=== PATIENT | female | born 1945 | race Caucasian/White ===

== ENCOUNTER 2016-05-05 13:59 | Inpatient (IN) | payer MEDICARE, BC, OTHER ==
[~2016-05-05] VITALS: Ht 167.6 cm; Wt 117.2 kg
[2016-05-06] MEDS ORDERED: ATOR1TAB18 PO (08:32)
[2016-05-06] MEDS ORDERED: MULT1TAB84 PO (08:32)
[2016-05-06] MEDS ORDERED: SYSTSOL9 EACH EYE (08:32)
[2016-05-06] MEDS ORDERED: ZETI10TA5 PO (08:32)
[2016-05-06] MEDS ORDERED: ASPI-147 PO (08:32)
[2016-05-06] MEDS ORDERED: METO100T9 PO (08:32)
[2016-05-06] MEDS ORDERED: LATA0.002 EACH EYE (08:32)
[2016-05-06] MEDS ORDERED: FOLI1TAB4 PO (08:32)
[2016-05-06] MEDS ORDERED: CLOP75TA PO (08:32)
[2016-05-17] VITALS (7 sets, daily range): BP systolic 116–136; BP diastolic 58–72; PULSE 74–90; RESP 16–20; TEMP 96–98; O2SAT 94–98
[2016-05-17] MEDS ORDERED: VANCOMYCIN HCL 1000 MG VIAL ONE (07:35)
[2016-05-17] MEDS ORDERED: SODIUM CHLOR 0.9% 250 ML INJ 250 ML ONE (07:35)
[2016-05-17] MEDS ORDERED: POVIDONE IODINE 7.5% SCRUB 118 ML BOTTLE TOP SCH (07:45)
[2016-05-17] MEDS ORDERED: VANCOMYCIN 1000 MG/NS 250 ML (for <70 kg) IV SCH ×2 (07:45)
[2016-05-17] MEDS ORDERED: INSULIN HUMAN REGULAR 1,000 UNITS/10 ML VIAL SQ PRN (07:45)
[2016-05-17] MEDS ORDERED: METOPROLOL TARTRATE 25 MG TAB PO PRN (07:45)
[2016-05-17] MEDS ORDERED: SODIUM CHLORID 0.9% 500 ML IV SCH (07:45)
[2016-05-17] MEDS ORDERED: BUPIVACAINE LIPOSO PF 1.3% INJ 20 ML in SODIUM CHLORIDE 0.9% INJ 40 ML P-ARTICULR SCH (08:00)
[2016-05-17] MEDS ORDERED: SODIUM CHLORIDE 0.9% IV SCH (08:00)
[2016-05-17] MEDS ORDERED: TRANEXAMIC ACID IV SCH (08:00)
[2016-05-17] MEDS ORDERED: EXPAREL PERI-ARTICULAR INJECTION (TOTAL VOL. 60 ML) P-ARTICULR SCH ×2 (08:00)
--- NOTE | 2016-05-17 08:12 | MH ---
cc: KEYONA KINGSLEY DATE OF ADMISSION: 05/17/2016 ADMISSION DIAGNOSIS Osteoarthritis left knee. HISTORY This is a 70-year-old female with significant left knee pain. Investigative studies show evidence of extensive arthritis left knee. Despite conservative care including injections, medications, altered activities, etc., the patient continued to be painful and presents now for surgical treatment. PAST MEDICAL HISTORY, SOCIAL HISTORY, FAMILY HISTORY, REVIEW OF SYSTEMS See attached notes. PHYSICAL EXAMINATION General: A 70-year-old female in moderate distress with her left knee. HEENT: Normocephalic, atraumatic. Pupils equal, round, reactive to light and accommodation. Extraocular motions intact. Neck: Supple. Chest: Clear. Heart: Regular rate and rhythm. Abdomen: Soft, nontender with normoactive bowel sounds. Musculoskeletal: Examination shows left knee pain with range of motion especially with flexion and extension. Neurovascular and vascular examination is within normal limits. IMPRESSION Osteoarthritis left knee. PLAN Left total knee replacement arthroplasty. CONSENT There are risks with surgery including infection, bleeding, loss of motion, continued pain, need for further surgery, neurologic or vascular injury. The patient understands this and requests to proceed with the surgery as outlined above. MD ANGELINA Haney/CARLOS /10:53 PM /8:06 AM
[2016-05-17] MEDS ORDERED: ONDANSETRON HCL 4 MG/2 ML VIAL IV PUSH ONE (08:15)
[2016-05-17] MEDS ORDERED: NEOSTIGMINE 3 MG/3 ML SYR IV ONE (08:15)
[2016-05-17] MEDS ORDERED: LACTATED RINGER'S 1000 ML INJ 2,000 ML IV ONE (08:15)
[2016-05-17] MEDS ORDERED: PROPOFOL 200 MG/20 ML AMP IV ONE (08:15)
[2016-05-17] MEDS ORDERED: ceFAZolin 2 GM PREMIX 50 ML IV SCH (08:15)
[2016-05-17] MEDS ORDERED: PHENYLEPH/NS 1000 MCG/10 ML SYR IV ONE (08:15)
[2016-05-17] MEDS ORDERED: ePHEDrine/NS 25 MG/5 ML SYR IV ONE (08:15)
[2016-05-17] MEDS ORDERED: fentaNYL CITRATE 1000 MCG/20 ML VIAL ONE (08:22)
[2016-05-17] MEDS ORDERED: FAMOTIDINE 20 MG/2 ML VIAL ONE (08:22)
[2016-05-17] MEDS ORDERED: MIDAZOLAM HCL 2 MG/2 ML VIAL ONE (08:22)
[2016-05-17] MEDS ORDERED: MIDAZOLAM HCL 2 MG/2 ML VIAL IV PUSH ONE (08:26)
[2016-05-17] MEDS ORDERED: FAMOTIDINE 20 MG/2 ML VIAL IV PUSH ONE (08:30)
[2016-05-17] MEDS ORDERED: ACETAMINOPHEN 1000 MG/100 ML VIAL IV ONE (08:37)
[2016-05-17] MEDS ORDERED: GENTAMICIN SULFATE 80 MG/2 ML VIAL XX ONE (09:53)
--- NOTE | 2016-05-17 11:25 | PD.OP ---
cc: Mehdi Gamboa MD Operative Report Date of Surgery: May 17, 2016 Preoperative Diagnosis: Osteoarthritis left knee. Valgus deformity left knee Postoperative Diagnosis: Same Procedure: Left total knee replacement arthroplasty, cruciate retaining Anesthesia: Gen. Surgeon: Mehdi Gamboa Cell Plasterer(s): ELOINA Carbajal Operation and Findings: EBL: 100 cc INDICATION: This patient presents with long-standing arthritis of the knee. This patient also has a valgus deformity of the knee. Attachment record documents conservative measures. The patient now presents for surgical treatment. NOTE: Yessenia Carbajal PA-C was present for the entire surgical procedure as my assistant director of admissions. In my medical opinion her skill and care was necessary for proper management of this patient. TOURNIQUET TIME: 51 minutes COMPANY: [employer] FEMUR: Size 3, cruciate retaining TIBIA: Size 3, fixed bearing PATELLA: 35mm mm POLYETHYLENE INSERT: 9 mm PROCEDURE: This patient was brought the operating room and anesthetized in the supine position. The patient was positioned supine on the table. The tourniquet was placed about the thigh, and the leg was scrubbed with alcohol followed by Hibiclens followed by ChloraPrep and draped sterilely. A timeout was done, and antibiotics were given. After exsanguination the tourniquet was inflated to 250 mmHg. An anterior incision was made and a median parapatellar arthrotomy was performed. The patella was released laterally and subluxed allowing freehand cut of the patella which was then sized. A metal cap was placed over the exposed patellar surface for protection. A photogrammetry airplane pilot hole was placed in the distal femur allowing a 4 valgus cut removing and mm from the distal femur. Anterior posterior and chamfer cuts were made. The attention was directed to the tibia. Retractors were positioned. The external alignment guide was used allowing the lateral tibia to be used as referencing guide and cut utilizing an oscillating saw taking care to avoid any injury to the surrounding soft tissues. This was sized properly. Trial reduction showed that the insert fit nicely. The patient had range of motion extension 0 flexion and 115. A medial release was not necessary. The bony surfaces prepared. On the back table 2 packets of methylmethacrylate were mixed. The components were cemented. Excess cement was removed. The tourniquet let down and hemostasis was controlled. The final plastic insert was inserted. Range of motion was the same as previously noted. A drain was brought through a separate stab incision. The arthrotomy was repaired with interrupted #1 Vicryl suture, subcutaneous tissue 2-0 Vicryl suture and skin with metallic romelia A sterile dressing was applied. Sponge counts, needle counts and instrument counts were all correct. The patient tolerated procedure well and was taken to recovery in satisfactory condition. FINDINGS: There was evidence of a moderate to severe valgus deformity. We ended up removing less from the lateral side than the medial side of the femur. The overall final fit and stability was excellent. No complication was noted. Mehdi Gamboa MD May 17, 2016 11:25
[2016-05-17] MEDS ORDERED: XARE10TA PO (11:26)
[2016-05-17] MEDS ORDERED: HYDR-3580 PO (11:26)
[2016-05-17] MEDS ORDERED: MORPHINE SULFATE 8 MG/ML INJ IV PUSH PRN (11:30)
[2016-05-17] MEDS ORDERED: Post-op Orders (for Pharmacy) MISC XX ONE (11:30)
[2016-05-17] MEDS ORDERED: ONDANSETRON HCL 4 MG/2 ML VIAL IVP PRN (11:30)
[2016-05-17] MEDS ORDERED: NALOXONE HCL 0.4 MG/ML AMP IV PRN (11:30)
[2016-05-17] MEDS ORDERED: BISACODYL 10 MG SUPP PR PRN (11:30)
[2016-05-17] MEDS ORDERED: MISCELLANEOUS NURSING INFORMATION XX PRN (11:30)
[2016-05-17] MEDS ORDERED: DO NOT ADM ANY ANTICOAGULANT DRUGS XX PRN (11:30)
[2016-05-17] MEDS ORDERED: SODIUM CHLORIDE 0.9% FLUSH 5 ML FLUSH IVF PRN (11:30)
[2016-05-17] MEDS ORDERED: ACETAMINOPHEN/HYDROcodone 325 MG/7.5 MG TAB PO PRN (11:30)
[2016-05-17] MEDS ORDERED: ALUMINUM/MAGNESIUM/SIMETH 30 ML CUP PO PRN (11:30)
[2016-05-17] MEDS ORDERED: MORPHINE SULFATE 30 MG/30 ML PCA ONE (11:38)
[2016-05-17] MEDS ORDERED: fentaNYL CITRATE 250 MCG/5 ML AMP ONE (11:42)
[2016-05-17] MEDS: MORPHINE SULFATE 30 MG/30 ML PCA IV SCH ×2 (11:45→21:06)
[2016-05-17] MEDS: LACTATED RINGER'S 1000 ML INJ 1,000 ML IV SCH ×2 (11:45→23:51)
[2016-05-17] MEDS ORDERED: ROPIVACAINE 0.5% PF INJ 30 ML VIAL NB ONE (11:55)
--- NOTE | 2016-05-17 12:49 | RADRPT ---
EXAM DATE/TIME: 05/17/2016 12:00 [facility] COMPARISON: No previous studies available for comparison. INDICATIONS : Post op left knee. MEDICAL HISTORY : None. SURGICAL HISTORY : None. ENCOUNTER: Initial ACUITY: 1 day PAIN SCORE: 4/10 LOCATION: Left knee FINDINGS: Patient is status post placement of a left knee prosthesis. There is good position and alignment of t he prosthesis and bony structures. The bony structures are grossly intact. Postsurgical changes are p resent. CONCLUSION: Good position and alignment on this postoperative examination. Oleksandr King MD on May 17, 2016 at 12:47 Board Certified Radiologist. This report was verified electronically.
[2016-05-17] MEDS: PCA - TOTAL MG MORPHINE DELIVERED PER SHIFT SCH ×2 (16:00→22:00)
[2016-05-17] MEDS: ATORVASTATIN 80 MG TAB PO SCH (20:24)
[2016-05-17] MEDS: SODIUM CHLORIDE 0.9% FLUSH 5 ML FLUSH IVF SCH (20:25)
[2016-05-17] MEDS: METOPROLOL SUCCINATE 50 MG EXTENDED RELEASE TAB PO SCH (20:25)
[2016-05-17] MEDS: LATANOPROST 0.005% OPHT SOLN 2.5 ML BTL EACH EYE SCH (20:30)
[2016-05-17] MEDS ORDERED: [UNRECOGNIZED DRUG - OTHER] EACH EYE SCH (21:00)
[2016-05-18] VITALS (7 sets, daily range): BP systolic 106–127; BP diastolic 54–76; PULSE 83–106; RESP 16–17; TEMP 96.5–98.8; O2SAT 93–95
[2016-05-18] MEDS: PCA - TOTAL MG MORPHINE DELIVERED PER SHIFT SCH (06:00)
[2016-05-18 07:04] LABS: HEMATOCRIT 34.8 % (35.0-46.0); REVIEW FLAG FINAL
[2016-05-18] MEDS: METOPROLOL SUCCINATE 50 MG EXTENDED RELEASE TAB PO SCH ×2 (09:00→19:40)
[2016-05-18] MEDS: EZETIMIBE 10 MG TAB PO SCH (09:00)
[2016-05-18] MEDS ORDERED: MULTIVITAMINS/MINERALS THERAPEUTIC TAB PO SCH (09:00)
[2016-05-18] MEDS ORDERED: PNEUMOCOCCAL POLYVALENT INJ 25 MCG/0.5 ML SYR IM ONE (10:00)
[2016-05-18] MEDS: RIVAROXABAN 10 MG TAB PO SCH (10:10)
[2016-05-18] MEDS ORDERED: WALKER WHEELS/F1 MIS (10:42)
--- NOTE | 2016-05-18 10:42 | HHI.FF ---
Face to Face Verification Diagnosis: (1) Osteoarthritis of left knee (2) Left knee pain Physical Therapy Gait training, Safety evaluation, Transfer training, bed to chair Knee: Total knee, Protocol: Left, Full weight bearing Canvas Knee Splint: When in bed & 2 pillows btw thighs Left LE Weight Bearing: WB as tolerated Additional Instructions PT 5 days/wk for 2 weeks. WBAT LLE. TKA protocol. Walker as needed. CPM twice daily, 0-70 w goal of 100 flexion. Nursing RN Days per Week: 2 x Week(s): 1 Dressing Changes: Do not change dressing Additional Instructions Vitals assessment. Dressing assessment - do not change unless saturated. Ok to shower pod#5 if kept sealed and dry. I have seen patient Laura Peña on 05/18/16. My clinical findings support the need for the requested home health care services because: Limited ability to care for self High risk of falls I certify that my clinical findings support that this patient is homebound because: Post-op weakness Unsteady gait/balance Mehdi Gamboa MD May 18, 2016 10:42
[2016-05-18] MEDS ORDERED: CPMMACHINE (10:43)
--- NOTE | 2016-05-18 13:11 | PD.ORT.PN ---
Subjective Subjective Remarks Left knee pain. Episode of feeling lightheaded earlier today but better. No new leg pain. No CP or SOB. Questions about surgery. Objective Vitals Vital Signs Date Time Temp Pulse Resp B/P Pulse Ox O2 Delivery O2 Flow Rate FiO2 05/18/16 12:00 97.1 83 17 120/54 94 05/18/16 08:00 98.2 86 16 119/76 93 05/18/16 06:00 20 05/18/16 04:30 97.1 85 17 112/66 95 05/18/16 00:39 96.5 88 17 127/67 95 05/17/16 22:00 18 05/17/16 21:06 18 05/17/16 20:20 98.0 90 18 127/60 94 05/17/16 16:00 96.6 77 18 121/60 94 05/17/16 15:15 98 Nasal Cannula 2.00 05/17/16 13:28 96.0 77 16 136/72 95 I/O 05/17/16 05/17/16 05/17/16 05/18/16 05/18/16 05/18/16 07:00 15:00 23:00 07:00 15:00 23:00 Intake Total 3188 ml 240 ml 240 ml Output Total 430 ml 410 ml 605 ml Balance 2758 ml -170 ml -365 ml Intake Oral 420 ml 240 ml 240 ml IV Total 368 ml Other 2400 ml Output Urine Total 260 ml 375 ml 600 ml Drainage Total 70 ml 35 ml 5 ml Estimated Blood Loss 100 ml # Bowel Movements 0 0 Result Diagram: 05/18/16 0650 Objective Remarks Sitting up in bed on CPM, NO acute distress VSS LLE Dressing c/d/i, drain in place, mild swelling, no erythema thigh and calf both supple +motor at, +sens, +nvi Assessment & Plan Ortho Post Op Day #: 1 Problem List: Assessment and Plan pod#1 s/p L 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 D/C left knee drain. Ok to change drain dressing only. Hold dressing changes otherwise unless saturated. PT - WBAT RLE. Anterior johnie precautions. Bladder scan - if retaining greater than 500cc, straight cath Xarelto 10mg qd. D/C planning, HHC vs. SNF monday. DME written. Daksha Lindsey May 18, 2016 13:11
[2016-05-18] MEDS: MULTIVITAMINS/MINERALS THERAPEUTIC TAB PO SCH (19:39)
[2016-05-18] MEDS: DOCUSATE SODIUM 100 MG CAP PO SCH (19:39)
[2016-05-18] MEDS: ATORVASTATIN 80 MG TAB PO SCH (19:39)
[2016-05-18] MEDS: ACETAMINOPHEN/HYDROcodone 325 MG/7.5 MG TAB PO PRN (19:40)
[2016-05-18] MEDS: LACTATED RINGER'S 1000 ML INJ 1,000 ML IV SCH (19:42)
[2016-05-18] MEDS: SODIUM CHLORIDE 0.9% FLUSH 5 ML FLUSH IVF SCH (19:42)
[2016-05-18] MEDS: LACTATED RINGER'S 1000 ML IV SCH (19:42)
[2016-05-18] MEDS: LATANOPROST 0.005% OPHT SOLN 2.5 ML BTL EACH EYE SCH (19:52)
[2016-05-19] VITALS: BP 106/53; PULSE 81; RESP 17; TEMP 98; O2SAT 93
[2016-05-19 04:00] VITALS: BP 128/60; PULSE 89; RESP 16; TEMP 99.4; O2SAT 95
[2016-05-19] MEDS: ACETAMINOPHEN/HYDROcodone 325 MG/7.5 MG TAB PO PRN ×5 (04:18→22:00)
[2016-05-19 08:00] VITALS: BP 101/61; PULSE 70; RESP 16; TEMP 97.3; O2SAT 94
[2016-05-19] MEDS: DOCUSATE SODIUM 100 MG CAP PO SCH ×2 (08:05→19:34)
[2016-05-19] MEDS: EZETIMIBE 10 MG TAB PO SCH (08:05)
[2016-05-19] MEDS: MULTIVITAMINS/MINERALS THERAPEUTIC TAB PO SCH ×2 (08:05→19:35)
[2016-05-19] MEDS: RIVAROXABAN 10 MG TAB PO SCH (08:42)
[2016-05-19] MEDS: MAGNESIUM HYDROXIDE SUSP 30 ML CUP PO PRN (08:54)
[2016-05-19] MEDS: SODIUM CHLORIDE 0.9% FLUSH 5 ML FLUSH IVF SCH ×2 (09:00→19:37)
[2016-05-19] MEDS: METOPROLOL SUCCINATE 50 MG EXTENDED RELEASE TAB PO SCH ×2 (09:00→20:32)
[2016-05-19] MEDS ORDERED: MISC-163 (09:21)
--- NOTE | 2016-05-19 09:22 | HHI.DCPOC ---
Discharge Care Plan Diagnosis: (1) Left knee pain (2) Osteoarthritis of left knee Your Health Problems Are: Incision/Drains Goals to Promote Your Health * To prevent worsening of your condition and complications * To maintain your health at the optimal level Directions to Meet Your Goals Take your medications as prescribed Follow your dietary instruction Follow activity as directed Keep your appointments as scheduled Take your immunizations and boosters as scheduled If your symptoms worsen call your PCP, if no PCP go to Urgent Care Center or Emergency Room Smoking is Dangerous to Your Health. Avoid second hand smoke Call the 24-hour hour crisis hotline for domestic abuse at Daksha Lindsey May 19, 2016 09:22
--- NOTE | 2016-05-19 09:25 | HHI.DS ---
Discharge Summary Admission Date May 17, 2016 at 07:16 Discharge Date: May 21, 2016 Admitting Diagnosis see below Diagnosis: (1) Left knee pain Diagnosis: Principal (2) Osteoarthritis of left knee Diagnosis: Principal Procedures Left total knee arthroplasty Brief History This is a 70 year old female patient with a history of left knee pain. She sought out medical care when she began struggling with daily activities and walking short distances. Imaging studies showed moderate osteoarthritis of the left knee. Conservative measures were pursued including medications and injections. She continued to struggle so surgical treatment was recommended. She elected to move forward. CBC/BMP: 05/18/16 0650 Significant Findings Laboratory Tests Test 05/18/16 06:50 Hematocrit 34.8 % (35.0-46.0) PE at Discharge Sitting up in bed on CPM, NO acute distress VSS LLE Dressing c/d/i, drain in place, mild swelling, no erythema thigh and calf both supple +motor at, +sens, +nvi Hospital Course Surgical treatment was performed on the day of admission without complication. She recovered well in PACU and was transferred to the orthopaedic floor. Pain was controlled with IV and oral medications. DVT prophylaxis was initiated pod# 1. She was compliant with physical therapy and all TKA precautions. After 4 days she was found to be stable and discharged home with home health care with instruction to continue therapy and to pursue a high fiber diet. Pt Condition on Discharge: Stable Discharge Disposition: Disch w/ Home Health Serv Discharge Instructions Diet Instructions: As Tolerated, No Restrictions, High Fiber Diet Activities You Can Perform: Weight Bearing as Ethan Activities to Avoid: Strenuous Activity Additional Activity Instruc.: TKA protocol New Medications: 3-in-1 Bedside Toilet (3-in-1 Bedside Toilet) 1 Mis Mis 1 EA .ROUTE DIRECTED #1 EA CPM-Continuous Passive Motion Machine (CPM-Continuous Passive Motion Machine) 1 Ea Device 1 EA .ROUTE DIRECTED #1 Ref 0 EA Walker with Front Wheels (Walker with Front Wheels) 1 Mis Mis 1 EA .ROUTE DIRECTED #1 Ref 0 EA Hydrocodone-Acetaminophen (Hydrocodone-Acetaminophen) 7.5-325 mg Tab 1 TAB PO Q4H PRN PAIN LESS THAN 5 ON SCALE #50 TAB Rivaroxaban (Xarelto) 10 Mg Tab 10 MG PO Q24H Prevent Blood Clot #15 TAB Continued Medications: Atorvastatin (Atorvastatin) 80 Mg Tab 80 MG PO HS Cholesterol Management #30 Ref 0 TAB Ezetimibe (Zetia) 10 Mg Tab 10 MG PO DAILY #30 Ref 0 TAB Folic Acid (Folate) 1 Mg Tab 1 MG PO DAILY Nutritional Supplement Ref 0 TAB Latanoprost Opth Drops (Latanoprost Opth Drops) 0.005% Drops 1 DROP EACH EYE HS Refrigerate until opened. Glaucoma #2.5 Ref 0 ML Metoprolol Succinate ER 24 HR (Metoprolol Succinate ER 24 HR) 100 Mg Tab 100 MG PO BID #30 Ref 0 TAB Multiple Vitamins W/ Minerals (Multivitamin Adults) 1 Tab 1 TAB PO DAILY Nutritional Supplement Ref 0 TAB Polyethylene Glycol-Propylene Opth (Systane Ultra Opth) 0.4-0.3% Soln 1 DROP EACH EYE BID Discontinued Medications: Aspirin DR (Ecotrin Low Strength) 81 Mg Tabdr 81 MG PO DAILY #30 Ref 0 TAB Clopidogrel (Clopidogrel) 75 Mg Tab 75 MG PO DAILY Blood Clot Prevention #30 Ref 0 TAB Daksha Lindsey May 19, 2016 09:25
--- NOTE | 2016-05-19 09:31 | PD.ORT.PN ---
Subjective Subjective Remarks Moderate left knee pain, little better today. Ice helps. Able to urinate so she did not need cath yesterday. No new leg pain. No CP or SOB. Questioning going home verus going to rehab. Objective Vitals Vital Signs Date Time Temp Pulse Resp B/P Pulse Ox O2 Delivery O2 Flow Rate FiO2 05/19/16 04:53 18 05/19/16 04:00 99.4 89 16 128/60 95 05/19/16 00:00 98.0 81 17 106/53 93 05/18/16 20:00 98.7 87 16 114/55 93 05/18/16 16:00 98.8 106 16 106/60 93 05/18/16 12:25 95 Nasal Cannula 2.00 05/18/16 12:00 97.1 83 17 120/54 94 I/O 05/18/16 05/18/16 05/18/16 05/19/16 05/19/16 05/19/16 07:00 15:00 23:00 07:00 15:00 23:00 Intake Total 240 ml 1200 ml 240 ml 240 ml Output Total 605 ml 80 ml 10 ml Balance -365 ml 1200 ml 160 ml 230 ml Intake Oral 240 ml 1200 ml 240 ml 240 ml IV Total 0 ml Output Urine Total 600 ml Drainage Total 5 ml 80 ml 10 ml # Voids 1 2 3 # Bowel Movements 0 0 0 0 Result Diagram: 05/18/16 0650 Procedures Left total knee arthroplasty Objective Remarks Sitting up in bed on CPM, spouse present No acute distress VSS LLE Dressing c/d/i, drain removed and site clean, mild swelling, no erythema thigh and calf both supple +motor at, +sens, +nvi Assessment & Plan Ortho Post Op Day #: 2 Problem List: (1) Left knee pain (2) Osteoarthritis of left knee Assessment and Plan pod#2 s/p L TKA PO pain meds as needed. Hold dressing changes otherwise unless saturated. PT - WBAT RLE. TKA precautions. Xarelto 10mg qd. Was on plavix preop and was instructed to not resume until xarelto RX is complete. Encouraged IS. D/C planning, HHC vs. SNF monday. Leaning towards SNF today but still unsure. Orders written either way. DME written. F2F and 3008 both signed. Daksha Lindsey May 19, 2016 09:31
[2016-05-19] MEDS ORDERED: PNEUMOCOCCAL POLYVALENT INJ 25 MCG/0.5 ML SYR IM ONE (10:00)
[2016-05-19 12:00] VITALS: BP 111/79; PULSE 80; RESP 16; TEMP 97.3; O2SAT 90
[2016-05-19 16:00] VITALS: BP 115/64; PULSE 81; RESP 16; TEMP 97; O2SAT 91
[2016-05-19] MEDS: LATANOPROST 0.005% OPHT SOLN 2.5 ML BTL EACH EYE SCH (19:34)
[2016-05-19] MEDS: ATORVASTATIN 80 MG TAB PO SCH (19:35)
[2016-05-19 20:00] VITALS: BP 114/64; PULSE 81; RESP 24; TEMP 96.7; O2SAT 97
[2016-05-19] MEDS: TEMAZEPAM 15 MG CAP PO PRN (22:00)
[2016-05-20] VITALS (7 sets, daily range): BP systolic 84–139; BP diastolic 54–74; PULSE 87–94; RESP 16–20; TEMP 96.9–98.5; O2SAT 93–97
[2016-05-20] MEDS: ACETAMINOPHEN/HYDROcodone 325 MG/7.5 MG TAB PO PRN ×5 (04:33→22:04)
[2016-05-20] MEDS: LACTATED RINGER'S 1000 ML IV SCH (07:45)
[2016-05-20] MEDS: METOPROLOL SUCCINATE 50 MG EXTENDED RELEASE TAB PO SCH ×2 (09:00→20:33)
[2016-05-20] MEDS: RIVAROXABAN 10 MG TAB PO SCH (09:11)
[2016-05-20] MEDS: MULTIVITAMINS/MINERALS THERAPEUTIC TAB PO SCH ×2 (09:11→20:32)
[2016-05-20] MEDS: DOCUSATE SODIUM 100 MG CAP PO SCH ×2 (09:11→20:32)
[2016-05-20] MEDS: EZETIMIBE 10 MG TAB PO SCH (09:11)
[2016-05-20] MEDS: SODIUM CHLORIDE 0.9% FLUSH 5 ML FLUSH IVF SCH ×2 (09:15→20:33)
--- NOTE | 2016-05-20 12:33 | PD.ORT.PN ---
Subjective Post Op Day #: 3 Subjective Remarks pain improving. having trouble ambulating with PT Objective Vitals Vital Signs Date Time Temp Pulse Resp B/P Pulse Ox O2 Delivery O2 Flow Rate FiO2 05/20/16 08:00 98.4 93 18 84/55 93 05/20/16 04:00 96.9 91 18 100/74 93 05/20/16 03:45 89 19 113/74 05/20/16 00:00 97.2 87 20 133/54 94 05/19/16 20:00 96.7 81 24 114/64 97 05/19/16 16:00 97.0 81 16 115/64 91 I/O 05/19/16 05/19/16 05/19/16 05/20/16 05/20/16 05/20/16 07:00 15:00 23:00 07:00 15:00 23:00 Intake Total 240 ml 1260 ml 240 ml Output Total 10 ml Balance 230 ml 1260 ml 240 ml Intake Oral 240 ml 1260 ml 240 ml Drainage Total 10 ml # Voids 3 4 2 # Bowel Movements 0 0 Result Diagram: 05/18/16 0650 Procedures Left total knee arthroplasty Objective Remarks Sitting up in chair, spouse present No acute distress VSS LLE Dressing c/d/i, mild swelling, no erythema thigh and calf both supple +motor at, +sens, +nvi Assessment & Plan Ortho Post Op Day #: 3 Problem List: (1) Left knee pain (2) Osteoarthritis of left knee Assessment and Plan pod#3 s/p L TKA PO pain meds as needed. Hold dressing changes otherwise unless saturated. PT - WBAT RLE. TKA precautions. Xarelto 10mg qd. Was on plavix preop and was instructed to not resume until xarelto RX is complete. Encouraged IS. D/C planning, HHC vs. SNF. patient want to go home. hold d/c today. if progresses in PT then d/c monday home, if not then d/c to snf. DME written. F2F and 3008 both signed. Gilson Ramirez May 20, 2016 12:32
[2016-05-20] MEDS: LACTATED RINGER'S 1000 ML INJ 1,000 ML IV SCH (14:21)
[2016-05-20] MEDS: TEMAZEPAM 15 MG CAP PO PRN (20:32)
[2016-05-20] MEDS: ATORVASTATIN 80 MG TAB PO SCH (20:32)
[2016-05-20] MEDS: diphenhydrAMINE HCL 25 MG CAP PO PRN (20:32)
[2016-05-20] MEDS: LATANOPROST 0.005% OPHT SOLN 2.5 ML BTL EACH EYE SCH (20:33)
[2016-05-21] VITALS: BP 103/49; PULSE 87; RESP 16; TEMP 97.6; O2SAT 93
[2016-05-21] MEDS: LACTATED RINGER'S 1000 ML INJ 1,000 ML IV SCH ×2 (02:51→11:48)
[2016-05-21] MEDS: ACETAMINOPHEN/HYDROcodone 325 MG/7.5 MG TAB PO PRN ×3 (03:34→12:57)
[2016-05-21] MEDS: LACTATED RINGER'S 1000 ML IV SCH (07:45)
[2016-05-21 08:00] VITALS: BP 114/63; PULSE 73; RESP 16; TEMP 96.7; O2SAT 97
--- NOTE | 2016-05-21 08:05 | PD.ORT.PN ---
Subjective Subjective Remarks pt doing much better, ready to be discharged home today Objective Vitals Vital Signs Date Time Temp Pulse Resp B/P Pulse Ox O2 Delivery O2 Flow Rate FiO2 05/21/16 00:00 97.6 87 16 103/49 93 05/20/16 20:05 98.2 92 16 116/54 96 05/20/16 16:00 98.5 94 18 117/54 96 05/20/16 12:00 98.0 90 18 139/74 97 I/O 05/20/16 05/20/16 05/20/16 05/21/16 05/21/16 05/21/16 07:00 15:00 23:00 07:00 15:00 23:00 Intake Total 600 ml 720 ml 480 ml Balance 600 ml 720 ml 480 ml Intake Oral 600 ml 720 ml 480 ml # Voids 4 2 1 # Bowel Movements 1 Result Diagram: 05/18/16 0650 Procedures Left total knee arthroplasty Objective Remarks seen by Dr. Feliciano Gamboa No acute distress VSS left knee dressings dry and intact +NVI no calf tenderness Assessment & Plan Problem List: (1) Left knee pain (2) Osteoarthritis of left knee Assessment and Plan pod#4 s/p L TKA PO pain meds as needed. Hold dressing changes otherwise unless saturated. PT - WBAT RLE. TKA precautions. Xarelto 10mg qd. Was on plavix preop and was instructed to not resume until xarelto RX is complete. discharge home today with [facility], orthopedically stable Melissa Herring May 21, 2016 08:05
[2016-05-21] MEDS: RIVAROXABAN 10 MG TAB PO SCH (08:31)
[2016-05-21] MEDS: MULTIVITAMINS/MINERALS THERAPEUTIC TAB PO SCH (08:31)
[2016-05-21] MEDS: DOCUSATE SODIUM 100 MG CAP PO SCH (08:31)
[2016-05-21] MEDS: EZETIMIBE 10 MG TAB PO SCH (08:31)
[2016-05-21] MEDS: MAGNESIUM HYDROXIDE SUSP 30 ML CUP PO PRN (08:32)
[2016-05-21] MEDS: METOPROLOL SUCCINATE 50 MG EXTENDED RELEASE TAB PO SCH (08:33)
[2016-05-21] MEDS: SODIUM CHLORIDE 0.9% FLUSH 5 ML FLUSH IVF SCH (08:34)
[2016-05-21] MEDS: diphenhydrAMINE HCL 25 MG CAP PO PRN (09:51)
== END 2016-05-21 14:31 | disposition home health service (06) | DRG 470 ==
LOC: HSDI 05-17 07:16 → N06A 05-17 13:12
PROVIDERS: ADMIT Orthopaedic Surgery Orthopaedic Surgery of the Spine; ATTEND Orthopaedic Surgery Orthopaedic Surgery of the Spine
PROC: 0SRD0J9 Replacement of Left Knee Joint with Synthetic Substitute, Cemented, Open Approach (ICD-10-PCS; principal; 2016-05-17 08:39)
DX: M17.12 Unilateral primary osteoarthritis, left knee (principal); M21.062 Valgus deformity, not elsewhere classified, left knee; Z23 Encounter for immunization
CPT/HCPCS: 73560; 85014; 85018; 86850; 86900; 86901; 86920; 90471; 90732; 94150; C1776; C9290; G0009; J0131; J0690; J1580; J2250; J2270; J2370; J2405; J2710; J2795; J3010; J3370; J7050; J7120; L1830

== ENCOUNTER → 2016-05-06 | Outpatient (CLI) | payer MEDICARE, OTHER, BC ==
[~2016-05-06] MED LIST: ASPI-147 PO; ATOR1TAB18 PO; ATOR80TA41 PO; CLOP75TA PO; CPMMACHINE; ECOT81TA2 PO; EZET10 PO; FOLI1TAB PO; FOLI1TAB4 PO; HYDR-3580 PO; LATA.005%O EACH EYE; LATA0.002 EACH EYE; METO100T9 PO; METO50TA11 PO; MISC-163; MULT1TAB84 PO; PERC5TAB12 PO; RIVA10 PO; SYSTSOL9 EACH EYE; VITA-13 PO; VITA50TA30 PO; WALKER WHEELS/F1 MIS; XARE10TA PO; ZETI10TA5 PO
[2016-05-06 08:40] LABS: BASOPHIL % 0.4 % (0.0-2.0); EOSINOPHIL # 0.2 TH/MM3 (0-0.4); EOSINOPHIL % 2.4 % (0.0-4.0); HEMATOCRIT 40.3 % (35.0-46.0); HEMO FLAGS DIFF FINAL; MEAN CELL VOLUME 98.2 FL (80.0-100.0); MEAN CORPUSCULAR HEMOGLOBIN 33.2 PG (27.0-34.0); MEAN CORPUSCULAR HGB CONC 33.8 % (32.0-36.0); MONO % 10.1 % (0.0-8.0); NEUT % 72.1 % (16.0-70.0); PLATELET COUNT 216 TH/MM3 (150-450); RED BLOOD COUNT 4.11 MIL/MM3 (4.00-5.30); RED CELL DISTRIBUTION WIDTH 13.4 % (11.6-17.2); WHITE BLOOD COUNT 6.9 TH/MM3 (4.0-11.0)
[2016-05-06 08:53] LABS: APTT (PATIENT) 26.1 SEC (24.3-30.1); PROTHROMBIN TIME - PATIENT 10.9 SEC (9.8-11.6)
[2016-05-06 08:59] LABS: POTASSIUM 4.3 MEQ/L (3.5-5.1)
[2016-05-06 09:49] LABS: BACTERIA, URINE MANY /hpf; BLOOD, URINE NEG (NEG); GLUCOSE,URINE NEG (NEG); HYALINE CAST, URINE 8 /lpf (RARE); KETONE, URINE NEG (NEG); MUCUS URINE MANY /lpf (OCC); PH, URINE 5.5 (5.0-8.5); SQUAMOUS EPITHELIAL CELL URINE 1 /hpf (0-5); URINE COLOR YELLOW (YELLW/STRAW)
[2016-05-06 09:50] LABS: COMMENT (UR) CATH-CULTURE IND; CULTURE IF INDICATED CATH CULTURE IND; NITRITE,URINE POS (NEG)
[2016-05-06 10:10] LABS: WESTERGREN SEDIMENTATION RATE 28 mm/hr (0-30)
== END ==
LOC: CPRE 07:56
PROVIDERS: ATTEND Orthopaedic Surgery Orthopaedic Surgery of the Spine
DX: M17.12 Unilateral primary osteoarthritis, left knee (principal); Z79.01 Long term (current) use of anticoagulants; Z01.812 Encounter for preprocedural laboratory examination
CPT/HCPCS: 36415; 80048; 81001; 85025; 85610; 85652; 85730; 87077; 87086; 87186